=== PATIENT | female | born 1955 | race Caucasian/White ===

== ENCOUNTER 2016-07-23 17:19 | Emergency (ER) | payer OTHER ==
[~2016-07-23] VITALS: Ht 165.1 cm; Wt 108.3 kg
[2016-07-23 17:26] VITALS: BP 128/84; PULSE 91; RESP 16; TEMP 98.1; O2SAT 98
[2016-07-23] MEDS ORDERED: METF1000 PO (17:36)
[2016-07-23] MEDS ORDERED: LISI20TA PO (17:36)
[2016-07-23] MEDS ORDERED: CLON0.5T PO (17:36)
[2016-07-23] MEDS ORDERED: DICL1CAP3 PO (17:36)
[2016-07-23] MEDS ORDERED: CARV3.12 PO (17:36)
[2016-07-23] MEDS ORDERED: FLUO10CA5 PO (17:36)
[2016-07-23] MEDS ORDERED: ARMO120T PO (17:36)
[2016-07-23] MEDS ORDERED: OMEP20TA PO (17:36)
[2016-07-23] MEDS ORDERED: BUPR150XL PO (17:36)
[2016-07-23] MEDS ORDERED: SODIUM CHLOR 0.9% 1000 ML INJ 1,000 ML IV SCH (17:51)
[2016-07-23] MEDS ORDERED: METOCLOPRAMIDE HCL 10 MG/2 ML VIAL IV PUSH ONE (18:00)
[2016-07-23] MEDS ORDERED: diphenhydrAMINE HCL 50 MG/ML VIAL IV PUSH ONE (18:00)
[2016-07-23] MEDS: SODIUM CHLOR 0.9% 1000 ML INJ 1,000 ML IV ONE ×2 (18:00→18:25)
[2016-07-23] MEDS ORDERED: SODIUM CHLORIDE 0.9% FLUSH 10 ML FLUSH IVF PRN (18:00)
[2016-07-23] MEDS ORDERED: DEXAMETHASONE SOD PHOS 20 MG/5 ML VIAL IV PUSH ONE (18:00)
--- NOTE | 2016-07-23 18:05 | PD ---
HPI Chief Complaint: Fall Time Seen by Provider: 17:51 Travel History International Travel<30 days: No Contact w/Intl Traveler<30days: No Traveled to known affect area: No History of Present Illness HPI Patient is a pleasant 60-year-old nontoxic female who presents to emergency room from home for evaluation of fall. Patient reports that she was in the shower and slipped and fell after she used a "slippery sugar scrub" on . Patient reports that she fell backwards and hit her head on the tub, patient reports no loss of consciousness. Patient reports that she was able to get up after the fall and ambulate. Patient reports that she was having some pains to the back of her neck. Patient reports that she has been taking Tylenol and ibuprofen with mild relief of symptoms. Patient reports that she went to the urgent care center today as she continued to have pain across her head. Patient denies any use of aspirin, anticoagulants. Patient was told to go to the emergency room for further evaluation of her symptoms. Patient denies any vision changes or nausea or vomiting. Patient with no chest pain or shortness of breath. Patient also complains of dysuria, urinary urgency and frequency. She reports that she was just started on antibiotics by the urgent care Center today for a UTI. PFSH Past Medical History Depression: Yes Cardiovascular Problems: Yes (htn on meds) Diabetes: Yes (type 2) Patient Takes Glucophage: Yes Hypertension: Yes ?: Not Past Surgical History Hysterectomy: Yes Oral Surgery: Yes (WISDOM TEETH) Tonsillectomy: Yes Other Surgery: Yes (OVARY REMOVED) Social History Alcohol Use: No Tobacco Use: No Substance Use: No Allergies-Medications (Allergen,Severity, Reaction): Coded Allergies: No Known Allergies (Unverified , 07/23/16) Reported Meds & Prescriptions Reported Meds & Active Scripts Active Ibuprofen 600 Mg Tab 600 Mg PO Q6H PRN Reported Wellbutrin Xl 24 HR (Bupropion HCl) 150 Mg Tab 150 Mg PO DAILY Omeprazole 20 Mg Tab 20 Mg PO DAILY Metformin (Metformin HCl) 1,000 Mg Tab 1,000 Mg PO DAILY With a meal Lisinopril-Hctz 20-12.5 Mg Tab 1 Tab PO DAILY Fluoxetine (Fluoxetine HCl) 10 Mg Cap Unknown Dose PO DAILY Zorvolex (Diclofenac) 18 Mg Cap Unknown Dose PO TID Clonazepam 0.5 Mg Tab 0.5 Mg PO BID Carvedilol 3.125 Mg Tab 3.125 Mg PO BID [place] Thyroid (Thyroid) 120 Mg Tab 120 Mg PO DAILY Review of Systems General / Constitutional: No: Fever Eyes: No: Visual changes HENT: Positive: Headaches, Lightheadedness, Neck Pain Cardiovascular: No: Chest Pain or Discomfort Respiratory: No: Cough, Shortness of Breath Gastrointestinal: No: Abdominal Pain Genitourinary: No: Dysuria Musculoskeletal: No: Limited ROM, Pain Skin: No Rash Neurologic: No: Weakness Psychiatric: No: Depression Endocrine: No: Polydipsia Hematologic/Lymphatic: No: Easy Bruising Physical Exam Narrative GENERAL: nad,nontoxic on evaluation SKIN: Focused skin assessment warm/dry. HEAD: Atraumatic. Normocephalic. EYES: Pupils equal and round. No scleral icterus. No injection or drainage. ENT: No nasal bleeding or discharge. Mucous membranes pink and moist. NECK: Trachea midline. No JVD. Patient with mild cervical paraspinal tenderness CARDIOVASCULAR: Regular rate and rhythm. No murmur appreciated. RESPIRATORY: No accessory muscle use. Clear to auscultation. Breath sounds equal bilaterally. GASTROINTESTINAL: Abdomen soft, non-tender, nondistended. Hepatic and splenic margins not palpable. MUSCULOSKELETAL: No obvious deformities. No clubbing. No cyanosis. No edema. NEUROLOGICAL: Awake and alert. No obvious cranial nerve deficits. Motor grossly within normal limits. Normal speech. CN 2-12 grossly intact with no neurological deficits PSYCHIATRIC: Appropriate mood and affect; insight and judgment normal. Data Data Last Documented VS Vital Signs Date Time Temp Pulse Resp B/P Pulse Ox O2 Delivery O2 Flow Rate FiO2 07/23/16 17:26 98.1 91 16 128/84 98 Orders Basic Metabolic Panel (Bmp) (07/23/16 17:51) Complete Blood Count With Diff (07/23/16 17:51) Prothrombin Time / Inr (Pt) (07/23/16 17:51) Act Partial Throm Time (Ptt) (07/23/16 17:51) Ct Brain W/O Iv Contrast(Rout) (07/23/16 17:51) Ct Cerv Spine W/O Contrast (07/23/16 17:51) Iv Access Insert/Monitor (07/23/16 17:51) Sodium Chlor 0.9% 1000 Ml Inj (Ns 1000 M (07/23/16 17:51) Sodium Chloride 0.9% Flush (Ns Flush) (07/23/16 18:00) Dexamethasone Inj (Decadron Inj) (07/23/16 18:00) Metoclopramide Inj (Reglan Inj) (07/23/16 18:00) Diphenhydramine Inj (Benadryl Inj) (07/23/16 18:00) Sodium Chlor 0.9% 1000 Ml Inj (Ns 1000 M (07/23/16 18:00) Labs Laboratory Tests Test 07/23/16 18:05 White Blood Count 8.9 TH/MM3 Red Blood Count 4.37 MIL/MM3 Hemoglobin 12.6 GM/DL Hematocrit 36.7 % Mean Corpuscular Volume 83.9 FL Mean Corpuscular Hemoglobin 28.8 PG Mean Corpuscular Hemoglobin 34.3 % Concent Red Cell Distribution Width 12.3 % Platelet Count 262 TH/MM3 Mean Platelet Volume 8.5 FL Neutrophils (%) (Auto) 63.3 % Lymphocytes (%) (Auto) 26.2 % Monocytes (%) (Auto) 8.5 % Eosinophils (%) (Auto) 1.5 % Basophils (%) (Auto) 0.5 % Neutrophils # (Auto) 5.7 TH/MM3 Lymphocytes # (Auto) 2.3 TH/MM3 Monocytes # (Auto) 0.8 TH/MM3 Eosinophils # (Auto) 0.1 TH/MM3 Basophils # (Auto) 0.0 TH/MM3 CBC Comment DIFF FINAL Differential Comment Prothrombin Time 10.7 SEC Prothromb Time International 1.0 RATIO Ratio Activated Partial 30.6 SEC Thromboplast Time Sodium Level 138 MEQ/L Potassium Level 4.1 MEQ/L Chloride Level 100 MEQ/L Carbon Dioxide Level 29.4 MEQ/L Anion Gap 9 MEQ/L Blood Urea Nitrogen 17 MG/DL Random Glucose 104 MG/DL Calcium Level 9.0 MG/DL MDM Medical Decision Making Medical Screen Exam Complete: Yes Emergency Medical Condition: Yes Interpretation(s) Vital Signs Date Time Temp Pulse Resp B/P Pulse Ox O2 Delivery O2 Flow Rate FiO2 07/23/16 17:26 98.1 91 16 128/84 98 Differential Diagnosis Concussion, intracranial hemorrhage, cervical spine fracture, cervical muscle strain Narrative Course Patient is a 60-year-old female who presents to emergency room with complaints of headache and neck pain after she fell from her bathtub on . Patient reports no loc after she fell, reports that she is not on any anticoagulants at this time. Patient was sent to the emergency room from the urgent care center for evaluation. On evaluation, patient with normal neurological exam. Patient is smiling, laughing on exam, she does have posterior headache as well as paraspinal tenderness to her cervical spine. Plan to obtain CT of the head and neck. We' ll treat as a migraine with the migraine cocktail. Vital Signs Date Time Temp Pulse Resp B/P Pulse Ox O2 Delivery O2 Flow Rate FiO2 07/23/16 17:26 98.1 91 16 128/[address] 07/23/16 1751 Signed Impressions: Service Date/Time: Thursday, July 23, 2016 18:01 - CONCLUSION: No acute intracranial findings. Abdullahi Hdez MD Laboratory Tests Test 07/23/16 18:05 White Blood Count 8.9 TH/MM3 (4.0-11.0) Red Blood Count 4.37 MIL/MM3 (4.00-5.30) Hemoglobin 12.6 GM/DL (11.6-15.3) Hematocrit 36.7 % (35.0-46.0) Mean Corpuscular Volume 83.9 FL (80.0-100.0) Mean Corpuscular Hemoglobin 28.8 PG (27.0-34.0) Mean Corpuscular Hemoglobin 34.3 % Concent (32.0-36.0) Red Cell Distribution Width 12.3 % (11.6-17.2) Platelet Count 262 TH/MM3 (150-450) Mean Platelet Volume 8.5 FL (7.0-11.0) Neutrophils (%) (Auto) 63.3 % (16.0-70.0) Lymphocytes (%) (Auto) 26.2 % (9.0-44.0) Monocytes (%) (Auto) 8.5 % (0.0-8.0) Eosinophils (%) (Auto) 1.5 % (0.0-4.0) Basophils (%) (Auto) 0.5 % (0.0-2.0) Neutrophils # (Auto) 5.7 TH/MM3 (1.8-7.7) Lymphocytes # (Auto) 2.3 TH/MM3 (1.0-4.8) Monocytes # (Auto) 0.8 TH/MM3 (0-0.9) Eosinophils # (Auto) 0.1 TH/MM3 (0-0.4) Basophils # (Auto) 0.0 TH/MM3 (0-0.2) CBC Comment DIFF FINAL Differential Comment Sodium Level 138 MEQ/L (136-145) Potassium Level 4.1 MEQ/L (3.5-5.1) Chloride Level 100 MEQ/L (98-107) Carbon Dioxide Level 29.4 MEQ/L (21.0-32.0) Anion Gap 9 MEQ/L (5-15) Blood Urea Nitrogen 17 MG/DL (7-18) Random Glucose 104 MG/DL (74-106) Calcium Level 9.0 MG/DL (8.5-10.1) Last Impressions Head CT 07/23/16 4921 Signed Impressions: Service Date/Time: Saturday, July 23, 2016 18:01 - CONCLUSION: No acute intracranial findings. Abdullahi Hdez MD ct head with tiny low density area in the medial temporal region may be a small lacunar infarct or omental cyst - there is no evidence of mass of hemorrhage. there is nothing to suggest acute infarction. patient with no neurological deficits at this time. I do not believe the patient has a small lacunar infarct. I did review all labs and all studies with patient in detail including all of the findings. Copies of patient's studies were given to her at discharge. Patient will follow with her primary care doctor and will return to emergency room as needed. Diagnosis Primary Impression: Concussion Qualified Code: S06.0X0A - Concussion, without LOC, initial encounter Additional Impressions: Cervical strain Qualified Code: S16.1XXA - Cervical strain, initial encounter Degenerative arthritis of cervical spine Patient Instructions: General Instructions Additional Instructions: Please provide patient with a copy of her lab work and studies at discharge Please follow-up with your primary care doctor in 2-3 days Return to the emergency room if symptoms worsen or progress Return to the emergency room as needed Scripts Ibuprofen 600 Mg Sdk131 Mg PO Q6H PRN (Pain/Inflammation) #40 TAB Ref 0 Prov:Araceli Robert DO 07/23/16 Araceli Robert DO July 23, 2016 18:05
[2016-07-23 18:24] LABS: AUTOMATED NEUTROPHIL # 5.7 TH/MM3 (1.8-7.7); BASOPHIL % 0.5 % (0.0-2.0); EOSINOPHIL # 0.1 TH/MM3 (0-0.4); EOSINOPHIL % 1.5 % (0.0-4.0); HEMATOCRIT 36.7 % (35.0-46.0); HEMO FLAGS DIFF FINAL; LYMPH % 26.2 % (9.0-44.0); LYMPHOCYTE # 2.3 TH/MM3 (1.0-4.8); MEAN CELL VOLUME 83.9 FL (80.0-100.0); MEAN CORPUSCULAR HEMOGLOBIN 28.8 PG (27.0-34.0); MEAN CORPUSCULAR HGB CONC 34.3 % (32.0-36.0); MONO % 8.5 % (0.0-8.0); NEUT % 63.3 % (16.0-70.0); PLATELET COUNT 262 TH/MM3 (150-450); RED BLOOD COUNT 4.37 MIL/MM3 (4.00-5.30); RED CELL DISTRIBUTION WIDTH 12.3 % (11.6-17.2); WHITE BLOOD COUNT 8.9 TH/MM3 (4.0-11.0)
[2016-07-23] MEDS ORDERED: IBUP-232 PO (18:29)
--- NOTE | 2016-07-23 18:29 | RADHPO ---
EXAM DATE/TIME: 07/23/2016 18:01 [facility] COMPARISON: No previous studies available for comparison. INDICATIONS : Trauma, slip and fall. RADIATION DOSE: 65.57 CTDIvol (mGy) MEDICAL HISTORY : Hypertension. Diabetes mellitus type 2. SURGICAL HISTORY : None. ENCOUNTER: Initial ACUITY: 1 week PAIN SCALE: 4/10 LOCATION: cranial TECHNIQUE: Multiple contiguous axial images were obtained of the head. Using automated exposure control and adj ustment of the mA and/or kV according to patient size, radiation dose was kept as low as reasonably a chievable to obtain optimal diagnostic quality images. FINDINGS: A tiny low density area in the medial temporal region may be a small lacunar infarct or omental cyst. There is no evidence of mass or hemorrhage. There is nothing to suggest acute infarction. The extrac ranial structures are benign and intact. CONCLUSION: No acute intracranial findings. Abdullahi Hdez MD on July 23, 2016 at 18:26 Board Certified Radiologist. This report was verified electronically.
[2016-07-23 18:33] LABS: POTASSIUM 4.1 MEQ/L (3.5-5.1)
--- NOTE | 2016-07-23 18:35 | RADHPO ---
EXAM DATE/TIME: 07/23/2016 18:01 [facility] COMPARISON: No previous studies available for comparison. INDICATIONS : Trauma, slip and fall. RADIATION DOSE: 22.28 CTDIvol (mGy) MEDICAL HISTORY : Hypertension. Diabetes mellitus type 2. SURGICAL HISTORY : None. ENCOUNTER: Initial ACUITY: 1 week PAIN SCALE: 4/10 LOCATION: neck TECHNIQUE: Volumetric scanning of the cervical spine was performed. Multiplanar reconstructions in the sagittal, coronal and oblique axial planes were performed. Using automated exposure control and adjustment o f the mA and/or kV according to patient size, radiation dose was kept as low as reasonably achievable to obtain optimal diagnostic quality images. FINDINGS: Cervical spine alignment is satisfactory. There is no evidence of cervical spine fracture. There is d egenerative change with disc space narrowing and endplate osteophyte formation most significantly at C5-6 and C6-7. No significant bony canal or foraminal compromise is present. There is no evidence of paraspinal hematoma. CONCLUSION: Degenerative change. No acute bony injury in the cervical spine Abdullahi Hdez MD on July 23, 2016 at 18:31 Board Certified Radiologist. This report was verified electronically.
[2016-07-23 18:36] LABS: BICARBONATE 29.4 MEQ/L (21.0-32.0)
[2016-07-23 18:37] LABS: APTT (PATIENT) 30.6 SEC (24.3-30.1); PROTHROMBIN TIME - PATIENT 10.7 SEC (9.8-11.6)
== END 2016-07-23 18:58 | disposition home or self-care (01) ==
LOC: PHEFT 17:19
DX: S06.0X0A Concussion without loss of consciousness, initial encounter (principal); S16.1XXA Strain of muscle, fascia and tendon at neck level, initial encounter; M46.92 Unspecified inflammatory spondylopathy, cervical region; N39.0 Urinary tract infection, site not specified; R42 Dizziness and giddiness; I10 Essential (primary) hypertension; E11.9 Type 2 diabetes mellitus without complications; Z79.899 Other long term (current) drug therapy; W18.2XXA Fall in (into) shower or empty bathtub, initial encounter
CPT/HCPCS: 70450; 72125; 80048; 85025; 85610; 85730; 96361; 96374; 96375; 99284; J1100; J1200; J2765; J7030

== ENCOUNTER 2017-03-15 12:38 | Emergency (ER) | payer OTHER ==
[~2017-03-15] VITALS: Ht 165.1 cm; Wt 117.0 kg
[~2017-03-15 12:38] MED LIST: ARMO120T PO; BUPR150XL PO; CARV3.12 PO; CLON0.5T PO; DICL1CAP3 PO; FLUO10CA5 PO; IBUP-232 PO; LISI20TA PO; METF1000 PO; OMEP20TA93 PO
[2017-03-15 12:43] VITALS: BP 117/83; PULSE 95; RESP 16; TEMP 98.6; O2SAT 96
--- NOTE | 2017-03-15 13:45 | PD ---
HPI Chief Complaint: Musculoskeletal Complaint Time Seen by Provider: 13:38 Travel History International Travel<30 days: No Contact w/Intl Traveler<30days: No Traveled to known affect area: No History of Present Illness HPI 60-year-old female presents to the emergency department for evaluation of left knee and right ankle pain. Patient states she had a fall in September of this year. She had left knee and right ankle pain from that fall. She had x-rays completed which were negative. However, she fell again approximately a month ago and reinjured her left knee and right ankle. She states it was a slip and fall. No head injury or LOC. Patient is hoping for an MRI today. She has not had x-rays completed after the second fall. She was ambulatory upon arrival. No other complaints. Exacerbating factors or walking and movement. Alleviating factor is rest. PFSH Past Medical History Depression: Yes Cardiovascular Problems: Yes (HTN) Diabetes: Yes (Metformin) Hypertension: Yes Past Surgical History Hysterectomy: Yes Oral Surgery: Yes (WISDOM TEETH) Tonsillectomy: Yes Other Surgery: Yes (OVARY REMOVED) Social History Alcohol Use: No Tobacco Use: No Substance Use: No Allergies-Medications (Allergen,Severity, Reaction): Coded Allergies: No Known Allergies (Unverified Adverse Reaction, Unknown, 03/15/17) Reported Meds & Prescriptions Reported Meds & Active Scripts Active Ibuprofen 600 Mg Tab 600 Mg PO Q6H PRN Reported Fluoxetine (Fluoxetine HCl) 60 Mg Tab 100 Mg PO DAILY Wellbutrin Xl 24 HR (Bupropion HCl) 150 Mg Tab 150 Mg PO DAILY Omeprazole 20 Mg Tab 20 Mg PO DAILY Metformin (Metformin HCl) 1,000 Mg Tab 1,000 Mg PO DAILY With a meal Lisinopril-Hctz 20-12.5 Mg Tab 1 Tab PO DAILY Zorvolex (Diclofenac) 18 Mg Cap Unknown Dose PO TID Clonazepam 0.5 Mg Tab 0.5 Mg PO BID Carvedilol 3.125 Mg Tab 3.125 Mg PO BID [place] Thyroid (Thyroid) 120 Mg Tab 120 Mg PO DAILY Review of Systems Except as stated in HPI: all other systems reviewed are Neg Physical Exam Narrative GENERAL: Well-nourished, well-developed female patient, ambulatory. Afebrile. SKIN: Focused skin assessment warm/dry. HEAD: Normocephalic. Atraumatic EYES: No scleral icterus. No injection or drainage. NECK: Supple, trachea midline. No JVD or lymphadenopathy. CARDIOVASCULAR: Regular rate and rhythm without murmurs, gallops, or rubs. RESPIRATORY: Breath sounds equal bilaterally. No accessory muscle use. Lungs sounds are clear to auscultation. GASTROINTESTINAL: Abdomen soft, non-tender, nondistended. MUSCULOSKELETAL: No cyanosis, or edema. Patient cheney tenderness over left medial knee and right medial ankle. She has full range of motion. Negative Abreu' s test. BACK: Nontender without obvious deformity. No CVA tenderness. Data Data Last Documented VS Vital Signs Date Time Temp Pulse Resp B/P (MAP) Pulse Ox O2 Delivery O2 Flow Rate FiO2 03/15/17 12:43 98.6 95 16 117/83 (94) 96 Orders Orders Ankle, Complete ([id number]) (03/15/17 ) Knee, Complete (4vws) (03/15/17 ) Splint Or Brace Apply/Monitor (03/15/17 14:34) Ice/Cold Pack (03/15/17 14:34) MDM Medical Decision Making Medical Screen Exam Complete: Yes Emergency Medical Condition: Yes Medical Record Reviewed: Yes Interpretation(s) Last Impressions Knee X-Ray 03/15/17 0000 Signed Impressions: Service Date/Time: Wednesday, March 15, 2017 13:51 - CONCLUSION: Mild spurring and a joint effusion. Abdullahi Small MD Ankle X-Ray 03/15/17 0000 Signed Impressions: Service Date/Time: Wednesday, March 15, 2017 13:57 - CONCLUSION: No acute bony injury is seen. Abdullahi Small MD Differential Diagnosis Sprain versus fracture versus contusion Narrative Course 61-year-old female presents to the emergency department for evaluation of left knee and right ankle pain for 1 month's slip and fall. I discussed that we do not do emergent MRIs in the emergency department for this type of injury. However, I will perform x-ray to rule out bony injury. She verbalizes agreement. X-ray of the left knee is negative for acute fracture. X-ray of the right ankle is negative for acute fracture. Patient is provided ice pack. Daquan bandage is applied the left knee for support. She is instructed follow up with an orthopedist. She is return here for any acute worsening of symptoms. Diagnosis Primary Impression: Left knee sprain Qualified Codes: S83.92XA - Sprain of unspecified site of left knee, initial encounter Additional Impression: Right ankle sprain Qualified Codes: S93.401A - Sprain of unspecified ligament of right ankle, initial encounter Referrals: Orthopedist Primary Care Physician Patient Instructions: Ankle Sprain (ED), General Instructions, Knee Sprain (ED) Additional Instructions: Wear Daquan bandage as needed for support. Rotate ice/heat. Follow-up with your primary care physician or orthopedist. Return to the emergency department for any acute worsening of symptoms. Med/Other Pt SpecificInfo: No Change to Meds Disposition: 01 DISCHARGE HOME Condition: Stable Herminia Mcmullen Mar 15, 2017 13:45
--- NOTE | 2017-03-15 14:13 | RADRPT ---
EXAM DATE/TIME: 03/15/2017 13:57 [facility] COMPARISON: No previous studies available for comparison. INDICATIONS : Fell 1 month ago, has right ankle pain MEDICAL HISTORY : Diabetes mellitus type II. Hypertension SURGICAL HISTORY : None. ENCOUNTER: Initial ACUITY: 1 month PAIN SCORE: 3/10 LOCATION: Right ankle FINDINGS: No fracture is seen. The ankle is normally aligned. There is minimal hypertrophic change at the Achil les attachment site at the posterior calcaneus. There is minimal soft tissue swelling at the ankle. CONCLUSION: No acute bony injury is seen. Abdullahi Small MD on March 15, 2017 at 14:10 Board Certified Radiologist. This report was verified electronically.
--- NOTE | 2017-03-15 14:16 | RADRPT ---
EXAM DATE/TIME: 03/15/2017 13:51 [facility] COMPARISON: No previous studies available for comparison. INDICATIONS : Fell 1 month ago, has left knee pain MEDICAL HISTORY : Diabetes mellitus type II. Hypertension SURGICAL HISTORY : None. ENCOUNTER: Initial ACUITY: 1 month PAIN SCORE: 9/10 LOCATION: Left knee FINDINGS: There is narrowing of the medial joint space. Minimal medial, lateral, and patellofemoral osteophytes are seen. There is a mild effusion. No acute fractures seen. CONCLUSION: Mild spurring and a joint effusion. Abdullahi Small MD on March 15, 2017 at 14:13 Board Certified Radiologist. This report was verified electronically.
[2017-03-15] MEDS ORDERED: FLUO60TA PO (14:22)
== END 2017-03-15 14:44 | disposition home or self-care (01) ==
LOC: PHEFT 12:38
DX: S83.92XA Sprain of unspecified site of left knee, initial encounter (principal); S93.401A Sprain of unspecified ligament of right ankle, initial encounter; E11.9 Type 2 diabetes mellitus without complications; I10 Essential (primary) hypertension; F32.9 Major depressive disorder, single episode, unspecified; Z79.84 Long term (current) use of oral hypoglycemic drugs; W01.0XXA Fall on same level from slipping, tripping and stumbling without subsequent striking against object, initial encounter
CPT/HCPCS: 73564; 73610; 99283

== ENCOUNTER → 2017-04-09 | Day surgery (SDC) | payer OTHER ==
[~2017-04-09] MED LIST changes: +ACETAMINOPHEN/HYDROcodone 325 MG/5 MG TAB ONE; +APREPITANT 40 MG CAP ONE; -FLUO10CA5 PO; +FLUO60TA PO; +KETOROLAC TROMETHAMINE 30 MG/ML (IVP) VIAL IV PUSH ONE; +LACTATED RINGER'S 1000 ML INJ 1,000 ML ONE; +MIDAZOLAM HCL 2 MG/2 ML VIAL ONE; +ONDANSETRON HCL 4 MG/2 ML VIAL IV PUSH ONE; +PROPOFOL 200 MG/20 ML AMP IV ONE; +TRIAMCINOLONE ACETONIDE 40 MG/ML VIAL ONE; +ceFAZolin INJ 1,000 MG VIAL ONE; +diphenhydrAMINE HCL 50 MG/ML VIAL ONE
--- NOTE | 2017-04-09 08:33 | TN ---
cc: EMMANUEL DELACRUZ M.D. DATE OF SURGERY: 04/09/2017 PREOPERATIVE DIAGNOSIS Left knee internal derangement. POSTOPERATIVE DIAGNOSIS Left knee complex tear medial meniscus, moderately severe chondromalacia medial compartment, moderate chondromalacia patellofemoral compartment. SURGEON Emmanuel Delacruz MD MIRROR PAINTER VANCE De Leon SPECIMEN None. ESTIMATED BLOOD LOSS None. ANESTHESIA General. TOURNIQUET TIME 12 minutes at 250 mmHg. CONDITION Stable. PLAN OF ACTIVITY Per orders. PROCEDURE My assistant professor of religion VANCE De Leon was present for the entire surgical case. She was medically necessary for the entire case because of the complexity of the case and to facilitate the performance of the procedure. The DIVISION PLANT ENGINEER at the back table was not a skill set for this case to manipulate the instruments, e.g., the multiple different arthroscopy, arthroscopic cisco and meniscal rongeurs. The patient was brought into the operating room and had satisfactory anesthesia by the Department of Anesthesia. The left lower extremity was prepped and draped in usual sterile manner. The extremity was exsanguinated by Daquan wrap. The tourniquet was inflated to 250 mmHg. Routine anterolateral and anterior medial port holes were made. Introduction of the arthroscopic instruments was performed. The extremity was inflated with sterile Ringer's lactated solution. Introduction of the arthroscopic instrument was performed. The knee was inflated with sterile Ringer's lactated solution. The patellofemoral compartment revealed a mild to moderate degree of synovitis. A moderate degree of chondromalacia involving the undersurface of the patella and the femoral trochlear groove. Lateral compartment showed minimal degenerative change involving the lateral meniscus, otherwise normal articular surface of the lateral femoral condyle and lateral tibial plateau. Anterior cruciate ligament showed what appeared to be an old partial anterior cruciate ligament tear, the medial compartment revealed the patient to have moderate to moderately severe chondromalacia involving the medial femoral condyle, medial tibial plateau. The patient was found to have complex tear involving the posterior medial meniscus. Subtotal medial meniscectomy was performed with rongeurs and cisco. Chondroplasty shaving the articular surface was also made of the medial compartment and patellofemoral compartment. The knee was irrigated with copious amounts of Ringer's lactated solution. The wound was then irrigated with sterile Ringer's lactated solution. The arthroscopic instruments removed, the knee was injected with 1 cc of Kenalog 40. The tourniquet was deflated. The incision was closed with 3-0 Nylon. Sterile dressing was applied. The patient tolerated the procedure well and arrived in the recovery room in stable and satisfactory condition. MD LIZ Gaines/LIAN /7:45 AM /7:57 AM SOO
== END | disposition home or self-care (01) ==
LOC: ESDC 06:12
PROVIDERS: ATTEND Orthopaedic Surgery Orthopaedic Surgery of the Spine
DX: S83.232A Complex tear of medial meniscus, current injury, left knee, initial encounter (principal); M94.262 Chondromalacia, left knee
CPT/HCPCS: 01400; 29881; J0690; J1200; J1885; J2250; J2405; J3010; J3301; J7120; J8501